=== PATIENT | male | born 1995 | race Caucasian/White ===

== ENCOUNTER 2020-12-28 15:52 | Emergency (ER) | payer OTHER ==
[~2020-12-28] VITALS: Ht 177.8 cm; Wt 81.8 kg
[2020-12-28 16:18] VITALS: BP 148/99
[2020-12-28] MEDS ORDERED: AMOXICILLIN AND1 TA2 PO (17:27)
[2020-12-28] MEDS ORDERED: NORCO 325 MG-51 TA1 PO (17:27)
== END 2020-12-28 17:42 | disposition home or self-care (01) ==
LOC: ED 15:52
DX: S61.256A Open bite of right little finger without damage to nail, initial encounter (principal); S51.851A Open bite of right forearm, initial encounter; S21.159A Open bite of unspecified front wall of thorax without penetration into thoracic cavity, initial encounter; W54.0XXA Bitten by dog, initial encounter
CPT/HCPCS: 90715; J1885